=== PATIENT | male | born 1940 | race Caucasian/White ===

== ENCOUNTER 2021-05-09 13:03 | Outpatient (CLI) | payer MEDICARE, BC | END 2021-05-09 13:04 | disposition home or self-care (01) | LOC: BICRAD 13:03 | PROVIDERS: ATTEND Podiatrist | DX: M79.671 Pain in right foot (principal) ==

== ENCOUNTER 2024-05-10 17:18 | Emergency (ER) | payer MEDICARE, BC ==
[2024-05-10] MEDS ORDERED: Acetaminophen 325 MG TAB ONE (18:51)
== END 2024-05-10 18:59 | disposition home or self-care (01) ==
LOC: ERS 17:18
DX: I10 Essential (primary) hypertension (principal); G44.209 Tension-type headache, unspecified, not intractable; Z79.899 Other long term (current) drug therapy
CPT/HCPCS: 93005; 99284

== ENCOUNTER 2024-12-01 11:26 | Emergency (ER) | payer MEDICARE, BC ==
[2024-12-01 13:18] LABS: #Basophils 0.07 10x3/uL (0.0-0.2); #Eosinophils 0.17 10x3/uL (0.0-0.7); #Monocytes 0.47 10x3/uL (0.11-0.59); #Neutrophils 3.75 10x3/uL (1.40-6.50); %Basophils 1.2 % (0.0-1.0); %Eosinophils 2.9 % (0.0-10.0); %Lymphocytes 24.5 % (21.0-51.0); %Monocytes 7.9 % (0.0-10.0); %Neutrophils 63.2 % (42.0-75.0); Hematocrit 38.8 % (42.0-52.0); Hemoglobin 12.6 g/dL (14.0-18.0); Mean Corpuscular Hemoglobin 30.7 pg (27.0-31.0); Mean Corpuscular Volume 94.4 fL (78.0-98.0); Platelet Count 182 10x3/uL (130-400); Red Blood Cell (RBC) Count 4.11 mill/uL (4.70-6.10); White Blood Cell (WBC) Count 5.93 10x3/uL (4.8-10.8)
[2024-12-01 13:36] LABS: ALT (SGPT) 38 U/L (Less than 45); AST (SGOT) 32 U/L (11-34); Albumin 4.0 g/dL (3.1-4.5); Alkaline Phosphatase 56 U/L (40-110); Anion Gap 11 mmol/L (10-20); BUN (Urea Nitrogen) 17 mg/dL (8.4-25.7); Bilirubin, Total 1.9 mg/dL (0.3-1.2); Calc. Creatinine Clearance 0 mL/min (70-130); Calcium 8.8 mg/dL (7.8-10.44); Carbon Dioxide 28 mmol/L (23-31); Chloride 106 mmol/L (98-107); Globulin 2.4 g/dL (2.4-3.5); Glucose 91 mg/dL (83-110); Lipase 20 U/L (8-78); Potassium 4.3 mmol/L (3.5-5.1); Sodium 141 mmol/L (136-145)
== END 2024-12-01 14:30 | disposition home or self-care (01) ==
LOC: ERS 11:26
DX: R07.2 Precordial pain (principal); E80.6 Other disorders of bilirubin metabolism; I10 Essential (primary) hypertension
CPT/HCPCS: 36415; 71045; 80053; 83605; 83690; 83880; 84484; 85025; 93005